=== PATIENT | female | born 1985 | race Asian ===

== ENCOUNTER 2016-10-09 00:38 | Outpatient (CLI) | payer OTHER ==
[2016-10-09 01:20] VITALS: BP 171/106; TEMP 98
== END 2016-10-09 02:28 | disposition home or self-care (01) ==
LOC: INF 00:38
DX: I16.0 Hypertensive urgency (principal)

== ENCOUNTER 2017-05-15 19:53 | Emergency (ER) | payer OTHER ==
[~2017-05-15] VITALS: Ht 172.7 cm; Wt 142.0 kg
[2017-05-15 20:56] LABS: PLATELET COUNT 302 K/uL (152-353)
== END 2017-05-15 22:52 | disposition home or self-care (01) ==
LOC: ED 19:53
DX: J02.0 Streptococcal pharyngitis (principal)
CPT/HCPCS: 36415; 85027; 87804; 87880; 96372; 99283; J0696

== ENCOUNTER 2017-06-14 11:42 | Emergency (ER) | payer OTHER ==
[~2017-06-14] VITALS: Ht 172.7 cm; Wt 141.5 kg
== END 2017-06-14 14:57 | disposition home or self-care (01) ==
LOC: ED 11:42
DX: R05 Cough (principal); R06.02 Shortness of breath
CPT/HCPCS: 99281

== ENCOUNTER 2017-06-30 19:19 | Emergency (ER) | payer OTHER ==
[~2017-06-30] VITALS: Ht 172.7 cm; Wt 141.5 kg
== END 2017-06-30 21:51 | disposition home or self-care (01) ==
LOC: ED 19:19
DX: S93.402A Sprain of unspecified ligament of left ankle, initial encounter (principal); X50.1XXA Overexertion from prolonged static or awkward postures, initial encounter; Y92.098 Other place in other non-institutional residence as the place of occurrence of the external cause
CPT/HCPCS: 81025; 96372; 99283; J1885; J2175; L4350